=== PATIENT | male | born 1995 | race Two or more races ===

== ENCOUNTER 2023-08-28 13:26 | Emergency (ER) | payer OTHER ==
[~2023-08-28] VITALS: Ht 165.1 cm; Wt 77.1 kg
[2023-08-28] MEDS ORDERED: DOLOGEN CAPLET1 EACH PO (15:04)
== END 2023-08-28 15:11 | disposition home or self-care (01) ==
LOC: ER 13:26
DX: M12.561 Traumatic arthropathy, right knee (principal); W22.8XXA Striking against or struck by other objects, initial encounter; Y93.89 Activity, other specified; Y92.89 Other specified places as the place of occurrence of the external cause; Z88.6 Allergy status to analgesic agent